=== PATIENT | male | born 1965 | race Caucasian/White ===

== ENCOUNTER 2018-02-06 19:05 | Inpatient (IN) | payer OTHER ==
[~2018-02-06] VITALS: Ht 190.5 cm; Wt 214.5 kg
[2018-02-06 19:15] VITALS: BP_SYST 123
[2018-02-06] MEDS ORDERED: NACL 0.9% 1,000 ML IV ONE (19:22)
[2018-02-06] MEDS ORDERED: ASPIRIN 81 MG TAB.CHEW PO ONE (19:30)
[2018-02-06 19:32] LABS: MEAN CORPUSCULAR HEMOGLOBIN 30 pg (27-31); MEAN CORPUSCULAR HGB CONC 31 % (32-36)
[2018-02-06 19:36] LABS: HEMATOCRIT 40.7 % (36-54); HEMOGLOBIN 12.8 g/dL (14.0-18.0); MEAN CORPUSCULAR VOLUME 95 fL (79.0-98.0); PLATELET COUNT (AUTO) 242 K/uL (130-430); RED BLOOD CELL COUNT(AUTO) 4.28 MIL/uL (4.2-6.2); RED CELL DISTRIBUTION WIDTH 16.6 % (9.0-15.0); WHITE BLOOD COUNT (AUTO) 7.5 K/uL (4.8-10.8)
[2018-02-06 19:39] LABS: ANION GAP 4 (5-15); CALCIUM 8.3 mg/dL (8.4-11.0); CHLORIDE 108 mmol/L (98-107); CREATININE 0.77 mg/dL (0.55-1.30); GLUCOSE 92 mg/dL (70-99); POTASSIUM 4.6 mmol/L (3.5-5.1); SODIUM SERUM 138 mmol/L (136-145); UREA NITROGEN, BLOOD 11 mg/dL (8-21)
[2018-02-06 19:42] LABS: GFR AFRICAN AMERICAN 138 mL/min (>90)
[2018-02-06 19:48] LABS: ALANINE AMINOTRANSFERASE 43 U/L (12-78); ALBUMIN 1.9 g/dL (3.4-4.8); ASPARTATE AMINOTRANSFERASE 82 U/L (10-37)
[2018-02-06 19:51] LABS: INR 1.5 (0.80-1.20); PROTHROMBIN TIME 15.8 SECS (9.5-12.5)
[2018-02-06 20:01] LABS: ATYPICAL LYMPHOCYTES % 0 % (0-0); BAND % (MANUAL) 5 % (0-6); BASOPHILS % (MANUAL) 0 % (0-2); EOSINOPHILS % (MANUAL) 5 % (0-7); LYMPHOCYTES % (MANUAL) 28 % (20-46); MONOCYTES % (MANUAL) 9 % (0-11)
[2018-02-06] MEDS ORDERED: ATEN50TA PO (21:13)
[2018-02-06] MEDS ORDERED: ACET325T53 PO (21:13)
[2018-02-06] MEDS ORDERED: ASPI-1153 PO (21:13)
[2018-02-06] MEDS ORDERED: BENA40TA65 PO (21:13)
[2018-02-06] MEDS ORDERED: HYDROMORPHONE PO (21:13)
[2018-02-06] MEDS ORDERED: BISA10SU61 RC (21:13)
[2018-02-06] MEDS ORDERED: FLEETMO RC (21:13)
[2018-02-06] MEDS ORDERED: VIT60OIN3 TP (21:13)
[2018-02-06] MEDS ORDERED: DOCU-144 PO (21:13)
[2018-02-06] MEDS ORDERED: FURO-149 PO (21:13)
[2018-02-06] MEDS ORDERED: ISOS60TA4 PO (21:18)
[2018-02-06] MEDS ORDERED: MOM PO (21:19)
[2018-02-06] MEDS ORDERED: NEOM500T PO (21:20)
[2018-02-06] MEDS ORDERED: NITR0.4T47 SL (21:21)
[2018-02-06] MEDS ORDERED: POTA20TA83 PO (21:22)
[2018-02-06] MEDS ORDERED: SENN8.6T19 PO (21:23)
[2018-02-06] MEDS ORDERED: RIVA20TA PO (21:23)
[2018-02-06] MEDS ORDERED: XOP.63 INH (21:24)
[2018-02-06] MEDS ORDERED: BISACODYL 10 MG/SUPPOSITORY RC SCH (22:00)
[2018-02-06] MEDS ORDERED: NITROGLYCERIN 0.4 MG TAB.SUBL SL PRN ×2 (22:00)
[2018-02-06] MEDS ORDERED: MINERAL OIL 133 ML ENEMA RC SCH (22:00)
[2018-02-06] MEDS ORDERED: ACETAMINOPHEN 325 MG TABLET PO PRN (22:00)
[2018-02-06] MEDS ORDERED: LEVALBUTEROL HCL 0.63 MG/3 ML VIAL.NEB INH PRN (22:00)
[2018-02-06] MEDS ORDERED: MILK OF MAGNESIA 30 ML UDC PO PRN (22:00)
[2018-02-06 22:09] VITALS: BP_SYST 123
[2018-02-06 22:49] VITALS: BP_SYST 123
[2018-02-06] MEDS: KETOROLAC TROMETHAMINE 15 MG VIAL IVP PRN (22:55)
[2018-02-07] MEDS: KETOROLAC TROMETHAMINE 15 MG VIAL IVP PRN ×2 (05:38→12:49)
[2018-02-07 06:49] LABS: HEMOGLOBIN 12.4 g/dL (14.0-18.0); MEAN CORPUSCULAR HEMOGLOBIN 31 pg (27-31); MEAN CORPUSCULAR HGB CONC 33 % (32-36); MEAN CORPUSCULAR VOLUME 96 fL (79.0-98.0); PLATELET COUNT (AUTO) 216 K/uL (130-430); RED BLOOD CELL COUNT(AUTO) 3.97 MIL/uL (4.2-6.2); RED CELL DISTRIBUTION WIDTH 16.1 % (9.0-15.0)
[2018-02-07 06:50] LABS: CREATININE 0.82 mg/dL (0.55-1.30); POTASSIUM 4.1 mmol/L (3.5-5.1)
[2018-02-07 08:00] VITALS: BP_SYST 132
[2018-02-07 08:42] LABS: LYMPHOCYTES % (MANUAL) 34 % (20-46); MONOCYTES % (MANUAL) 14 % (0-11)
[2018-02-07 08:43] LABS: BASOPHILS % (MANUAL) 0 % (0-2); EOSINOPHILS % (MANUAL) 16 % (0-7)
[2018-02-07] MEDS: VITS A AND D/WHITE PET/LANOLIN 113.4 GM TUBE TP SCH (09:00)
[2018-02-07] MEDS: ISOSORBIDE MONONITRATE 30 MG TAB.ER.24H PO SCH (09:19)
[2018-02-07] MEDS: POTASSIUM CHLORIDE 20 MEQ TAB.PRT.SR PO SCH (09:20)
[2018-02-07] MEDS: NEOMYCIN SULFATE 500 MG TABLET PO SCH ×3 (09:20→20:11)
[2018-02-07] MEDS: RIVAROXABAN 10 MG TABLET PO SCH (09:20)
[2018-02-07] MEDS: BENAZEPRIL HCL 20 MG TABLET (LOTENSIN) PO SCH (09:27)
[2018-02-07] MEDS: DOCUSATE SODIUM 100 MG CAPSULE PO SCH (09:28)
[2018-02-07] MEDS: FUROSEMIDE 40 MG TABLET PO SCH (09:28)
[2018-02-07] MEDS: ATENOLOL 50 MG TABLET (TENORMIN) PO SCH (09:28)
[2018-02-07] MEDS: ASPIRIN 81 MG TABLET(ECOTRIN) PO SCH (09:28)
[2018-02-07] MEDS ORDERED: BALSAM PERU/CASTOR OIL 60 GM OINT...G. TP ONE (11:45)
[2018-02-07 12:10] VITALS: BP_SYST 139
[2018-02-07 16:10] VITALS: BP_SYST 132
[2018-02-07] MEDS ORDERED: HYDROmorphone 2 MG/ML VIAL IVP ONE (19:45)
[2018-02-07 20:00] VITALS: BP_SYST 116
[2018-02-08 00:15] VITALS: BP_SYST 121
[2018-02-08] MEDS: KETOROLAC TROMETHAMINE 15 MG VIAL IVP PRN ×4 (00:52→19:13)
[2018-02-08 08:04] VITALS: BP_SYST 138
[2018-02-08] MEDS: RIVAROXABAN 10 MG TABLET PO SCH (08:39)
[2018-02-08] MEDS: POTASSIUM CHLORIDE 20 MEQ TAB.PRT.SR PO SCH (08:39)
[2018-02-08] MEDS: ASPIRIN 81 MG TABLET(ECOTRIN) PO SCH (08:40)
[2018-02-08] MEDS: ISOSORBIDE MONONITRATE 30 MG TAB.ER.24H PO SCH (08:40)
[2018-02-08] MEDS: NEOMYCIN SULFATE 500 MG TABLET PO SCH ×3 (08:40→21:00)
[2018-02-08] MEDS: DOCUSATE SODIUM 100 MG CAPSULE PO SCH (08:40)
[2018-02-08] MEDS: FUROSEMIDE 40 MG TABLET PO SCH (08:41)
[2018-02-08] MEDS: BENAZEPRIL HCL 20 MG TABLET (LOTENSIN) PO SCH (08:41)
[2018-02-08] MEDS: ATENOLOL 50 MG TABLET (TENORMIN) PO SCH (08:41)
[2018-02-08] MEDS: VITS A AND D/WHITE PET/LANOLIN 113.4 GM TUBE TP SCH (08:42)
[2018-02-08] MEDS ORDERED: BALSAM PERU/CASTOR OIL 60 GM OINT...G. TP SCH (09:00)
[2018-02-08 10:59] VITALS: BP_SYST 105
[2018-02-08 16:00] VITALS: BP_SYST 114
[2018-02-08 16:26] VITALS: BP_SYST 105; BP_SYST 114
[2018-02-08 20:55] VITALS: BP_SYST 135
== END 2018-02-08 21:00 | DRG 205 ==
LOC: SED 19:05 → STU 21:33
PROVIDERS: ADMIT Family Medicine; ATTEND Family Medicine
DX: M94.0 Chondrocostal junction syndrome [Tietze] (principal); E43 Unspecified severe protein-calorie malnutrition; D68.59 Other primary thrombophilia; Z68.43 Body mass index [BMI] 50.0-59.9, adult; E66.01 Morbid (severe) obesity due to excess calories; I10 Essential (primary) hypertension; I48.2 Chronic atrial fibrillation; K76.9 Liver disease, unspecified; Z90.81 Acquired absence of spleen; F17.210 Nicotine dependence, cigarettes, uncomplicated; I87.8 Other specified disorders of veins
CPT/HCPCS: 36415; 71045; 80048; 80053; 82550-TC; 83880; 84484; 85007; 85027; 85610-TC; 85730-TC; 87081; 93005; 96360; 99285; J1170; J1885

== ENCOUNTER 2018-03-08 18:56 | Emergency (ER) | payer OTHER ==
[~2018-03-08] VITALS: Ht 190.5 cm; Wt 170.1 kg
[2018-03-08 18:56] VITALS: BP_SYST 152
[~2018-03-08 18:56] MED LIST: ACET325T53 PO; ASPI-1153 PO; ATEN50TA PO; BENA40TA65 PO; BISA10SU61 RC; DOCU-144 PO; FLEETMO RC; FURO-149 PO; HYDROMORPHONE PO; ISOS60TA4 PO; MOM PO; NEOM500T PO; NITR0.4T47 SL; POTA20TA83 PO; RIVA20TA PO; SENN8.6T19 PO; VIT60OIN3 TP; XOP.63 INH
--- NOTE | 2018-03-08 18:56 | NUR ---
BROUGHT IN BY [facility], PLACED IN BED #5 AND TRIAGED.REPORT GIVEN TO [employer]PER[employer]OR.
--- NOTE | 2018-03-08 19:00 | NUR ---
Pt was brought in by BLS, from [facility], complaining of right sided flank pain that shoots down to legs. Pt states he was ambulating and a nurse had noticed he was "shaking and not acting right." Per pt, pain to back increased more when he was sitting down. Pt denies N/V or diarrhea. No other injuries/complaints per patient or noted.
--- NOTE | 2018-03-08 20:01 | NUR ---
ER Dr. Joy at bedside examining patient.
[2018-03-08] MEDS ORDERED: NACL 0.9% 500 ML IV ONE (20:15)
[2018-03-08] MEDS ORDERED: NS 500 ML IV ONE (20:15)
[2018-03-08 20:22] LABS: BILIRUBIN,URINE NEGATIVE (NEGATIVE); BLOOD, URINE 2+ (NEGATIVE); CLARITY/URINE CLEAR (CLEAR); COLOR,URINE YELLOW (YELLOW); GLUCOSE,URINE NEGATIVE (NEGATIVE); KETONES,URINE NEGATIVE (NEGATIVE); LEUKOCYTE ESTERASE ,URINE NEGATIVE (NEGATIVE); NITRITE, URINE NEGATIVE (NEGATIVE); PROTEIN URINE NEGATIVE (NEGATIVE); UROBILINOGEN,URINE 0.2 (0.2-1.0)
[2018-03-08 20:26] LABS: HEMATOCRIT 44.1 % (36-54); HEMOGLOBIN 14.2 g/dL (14.0-18.0); MEAN CORPUSCULAR HEMOGLOBIN 30 pg (27-31); MEAN CORPUSCULAR HGB CONC 32 % (32-36); MEAN CORPUSCULAR VOLUME 94 fL (79.0-98.0); PLATELET COUNT (AUTO) 233 K/uL (130-430); RED BLOOD CELL COUNT(AUTO) 4.68 MIL/uL (4.2-6.2); RED CELL DISTRIBUTION WIDTH 16.8 % (9.0-15.0); WHITE BLOOD COUNT (AUTO) 13.1 K/uL (4.8-10.8)
--- NOTE | 2018-03-08 20:29 | NUR ---
Pt refused Toradol 30 mg IV push, stating "I have allergies to that medicine, I get hives." Dr. Joy made aware.
[2018-03-08] MEDS: KETOROLAC TROMETHAMINE 30 MG VIAL IVP ONE ×2 (20:31→20:36)
--- NOTE | 2018-03-08 20:32 | NUR ---
Xray at bedside, pt tolerated well.
[2018-03-08 20:47] LABS: CALCIUM 8.7 mg/dL (8.4-11.0); CREATININE 1.22 mg/dL (0.55-1.30); POTASSIUM 4.5 mmol/L (3.5-5.1)
[2018-03-08 20:53] LABS: ALBUMIN 2.2 g/dL (3.4-4.8); PROTHROMBIN TIME 19.7 SECS (9.5-12.5); TOTAL BILIRUBIN 2.7 mg/dL (0.0-1.0)
[2018-03-08 21:14] LABS: BACTERIA,URINE RARE /HPF (None Seen); MUCUS,URINE None Seen /LPF (None Seen); WBC,URINE 0-3 /HPF (0-3)
[2018-03-08 21:21] LABS: ATYPICAL LYMPHOCYTES % 0 % (0-0); BAND % (MANUAL) 2 % (0-6); BASOPHILS % (MANUAL) 0 % (0-2); EOSINOPHILS % (MANUAL) 0 % (0-7); LYMPHOCYTES % (MANUAL) 9 % (20-46); MONOCYTES % (MANUAL) 5 % (0-11)
[2018-03-08 22:12] VITALS: BP_SYST 145
--- NOTE | 2018-03-08 22:12 | NUR ---
Patient given written and verbal discharge instructions and verbalizes understanding. ER MD discussed with patient the results and treatment provided. Patient in stable condition. ID arm band removed. IV catheter removed intact and dressing applied, no active bleeding. No Rx given. Patient educated on pain management and to follow up with PMD. Pain Scale 2. Opportunity for questions provided and answered. Medication side effect fact sheet provided.
== END 2018-03-08 22:12 | disposition home or self-care (01) ==
LOC: SED 18:56
DX: M54.5 Low back pain (principal); I48.91 Unspecified atrial fibrillation; I10 Essential (primary) hypertension; Z79.82 Long term (current) use of aspirin; Z79.899 Other long term (current) drug therapy
CPT/HCPCS: 36415; 71045; 80053; 81000; 83605; 84484; 85007; 85027; 85610; 85730; 87040; 87086; 87186; 93005; 96361; 96374; 99285; J1885; J7040; J7030